=== PATIENT | female | born 1965 | race Caucasian/White ===

== ENCOUNTER 2019-01-06 05:57 | Day surgery (SDC) | payer OTHER ==
[~2019-01-06] VITALS: Ht 152.4 cm; Wt 59.0 kg
[2019-01-06] MEDS ORDERED: fentaNYL 0.05 MG/ML VIAL ONE (07:43)
[2019-01-06] MEDS ORDERED: LIDOCAINE 2% 100 MG/5 ML UJET TP ONE (08:03)
[2019-01-06] MEDS ORDERED: fentaNYL 0.05 MG/ML VIAL IVP ONE (08:35)
== END 2019-01-06 08:50 | disposition home or self-care (01) ==
LOC: MDS 05:57 → MTU 06:00 → MDS 08:50
PROVIDERS: ATTEND Internal Medicine Gastroenterology
DX: K64.8 Other hemorrhoids (principal); I10 Essential (primary) hypertension; E78.00 Pure hypercholesterolemia, unspecified; Z90.49 Acquired absence of other specified parts of digestive tract; Z98.890 Other specified postprocedural states
CPT/HCPCS: 45378; J3010